=== PATIENT | female | born 1985 | race Caucasian/White ===

== ENCOUNTER 2022-07-05 12:06 | Emergency (ER) | payer SELFPAY ==
[~2022-07-05] VITALS: Ht 160 cm; Wt 49.9 kg
[2022-07-05 12:06] VITALS: BP_SYST 158
--- NOTE | 2022-07-05 12:20 | NUR ---
Patient to ER bed 02 to gown for evaluation. Side rails up.
--- NOTE | 2022-07-05 12:23 | NUR ---
Dr Vivas evaluating patient at bedside
--- NOTE | 2022-07-05 12:24 | NUR ---
Pt arrived to ED by ambulance with PD present. Pt stated she passed out at [facility] and emergency services were brought to her [employer]. Pt. is Awake and alert AOx4, PERRLA, no signs of SOB. No sign of trauma present. Pt denied pain and any N/V. Pt stated she took Fentanyl, but refused Narcan with paramedics because she was awake. Pt stated she is currently homeless. VSS
--- NOTE | 2022-07-05 12:42 | NUR ---
food tray ordered for patient
--- NOTE | 2022-07-05 12:48 | NUR ---
Pt ambulated to restroom on stable condition, will cont to monitor
[2022-07-05] MEDS ORDERED: ONDANSETRON 4 MG ODT TAB PO ONE (13:30)
--- NOTE | 2022-07-05 14:10 | NUR ---
Patient given verbal discharge instructions and verbalizes understanding. ER MD discussed with patient the results and treatment provided. Patient in stable condition. Pt left without written instructions. No Rx given. Patient educated on pain management and to follow up with PMD. Pain Scale 0/10. Opportunity for questions provided and answered. Medication side effect fact sheet provided.
[2022-07-05 14:22] VITALS: BP_SYST 158
== END 2022-07-05 14:22 | disposition home or self-care (01) ==
LOC: SED 12:06
DX: T40.1X1A Poisoning by heroin, accidental (unintentional), initial encounter (principal); Z91.018 Allergy to other foods; Z79.899 Other long term (current) drug therapy; Y92.89 Other specified places as the place of occurrence of the external cause
CPT/HCPCS: 99283; Q0162